=== PATIENT | female | born 1980 | race Hispanic/Latino ===

== ENCOUNTER 2017-07-12 09:27 | Emergency (ER) | payer OTHER ==
[2017-07-12 09:38] VITALS: BMI 25.1
--- NOTE | 2017-07-12 10:12 | ED PDOC ---
Lower Extremity Pain/Injury Time Seen by Provider: 07/12/17 09:54 Chief Complaint (Nursing): Lower Extremity Problem/Injury Chief Complaint (Provider): Left foot injury History Per: Patient History/Exam Limitations: no limitations Onset/Duration Of Symptoms: Days (x 2) Current Symptoms Are (Timing): Still Present Additional Complaint(s): Damaris is a 37 y/o female with no past medical history who presents to the ED complaining of left foot and toe pain, s/p injury last night around 10pm. Patient was moving furniture down the stairs, and rolled ankle. States she broke the left 5th metatarsal during childhood, and pain feels similar. Denies taking any medications for relief of pain. Patient iced the foot last night, without improvement. LMP was end of May. PMD: Michelle Andrade Past Medical History Reviewed: Historical Data, Nursing Documentation, Vital Signs - Medical History PMH: No Chronic Diseases - Surgical History Surgical History: Tonsillectomy Other surgeries: Breast augmentation - Family History Family History: States: Unknown Family Hx - Social History Current smoker - smoking cessation education provided: No Alcohol: Social Drugs: Denies - Home Medications Home Medications: Ambulatory Orders Medication Instructions Recorded No Known Home Med 07/12/17 - Allergies Allergies/Adverse Reactions: Allergies Allergy/AdvReac Type Severity Reaction Status Date / Time No Known Allergies Allergy Verified 06/07/16 14:54 Review of Systems ROS Statement: Except As Marked, All Systems Reviewed And Found Negative Musculoskeletal: Positive for: Foot Pain (Left foot and 5th metatarsal pain) Physical Exam - Reviewed Nursing Documentation Reviewed: Yes Vital Signs Reviewed: Yes - Physical Exam Appears: Positive for: Well, Non-toxic, No Acute Distress Head Exam: Positive for: ATRAUMATIC, NORMAL INSPECTION, NORMOCEPHALIC Skin: Positive for: Normal Color, Warm, Dry Eye Exam: Positive for: EOMI, Normal appearance, PERRL Neck: Positive for: Normal, Painless ROM, Supple Pulses-Dorsalis Pedis (L): 2+ Pulses-Dorsalis Pedis (R): 2+ Extremity: Positive for: Tenderness (tenderness to base of 5th metatarsal, no tenderness to lateral malleolus), Other (Ecchymosis at lateral malleolus, sensation intact) Neurologic/Psych: Positive for: Alert, Oriented. Negative for: Motor/Sensory Deficits - Radiology X-Ray: Interpreted by Me, Viewed By Me X-Ray Interpretation: No Acute Disease Nexus Criteria: Negative (for fracture) Medical Decision Making Medical Decision Making: Time: 10:09 Initial Impression: Sprained ankle, rule out toe fracture Initial Plan: -- test --Ibuprofen 600 mg PO --Pending X-Rays Left Foot and Ankle Time: 10:40 --X Rays read by me, negative for fracture --Podiatry consult requested Time: 12:30 --Tylenol 975 mg PO Scribe Attestation: Documented by Yumiko Purcell, acting as a scribe for Yoly Wen MD Provider Scribe Attestation: All medical record entries made by the Scribe were at my direction and personally dictated by me. I have reviewed the chart and agree that the record accurately reflects my personal performance of the history, physical exam, medical decision making, and the department course for this patient. I have also personally directed, reviewed, and agree with the discharge instructions and disposition. 1.00p - seen by podiatry resident. posterior splint and crutches. follow up with Dr. Whitman Disposition - Clinical Impression Clinical Impression: Foot sprain - Patient ED Disposition Is Patient to be Admitted: No Doctor Will See Patient In The: Office Counseled Patient/Family Regarding: Diagnosis, Need For Followup - Disposition Referrals: Amelia Whitman DPM [Staff Provider] - Disposition: Routine/Home Disposition Time: 13:00 Condition: STABLE Instructions: Foot Sprain (ED) Forms: [facility] (Malagasy) - POA Present On Arrival: None
[2017-07-12 11:21] VITALS: BP 121/85; PULSE 97; RESP 16; TEMP 98; O2SAT 100
--- NOTE | 2017-07-12 12:02 | CP.PCM.CON ---
History of Present Illness - History of Present Illness History of Present Illness: 37 year old female with no PMH presents to the ED for left foot pain secondary to trauma. She was moving furniture downstairs yesterday at 10pm with flip flops when her foot twisted, breaking the flops. She states that her ankle did not roll or twist; the twisting occurred at the foot level. She rates her pain 7 /10 and describes the pain as being a throbbing pain at the left 5th metatarsal base. It didn't hurt last night but this morning she was in pain. She noticed bruising on her lateral foot. She has tried icing at home which does not help. Did not take pain medications at home. She received Motrin in the ED which does not help much. Patient recalls having a 5th metatarsal fracture 20+ years ago but can't recall if it's the same foot. She was placed in a cast and healed with no complications. States the pain felt similar. Denies n/v/sob/cp/chills or f. Allergies: NKDA Meds: none PMH: none FH: none SH: denies smoking or elicited drug use, drinks socially PSH: tonsillectomy, breast implants Past Patient History - Past Social History Alcohol: Social Drugs: Denies - PSYCHIATRIC Hx Substance Use: No - SURGICAL HISTORY Hx Tonsillectomy: Yes - ANESTHESIA Hx Anesthesia: Yes Hx Anesthesia Reactions: No Meds Allergies/Adverse Reactions: Allergies Allergy/AdvReac Type Severity Reaction Status Date / Time No Known Allergies Allergy Verified 06/07/16 14:54 Physical Exam - Constitutional Appears: Well, Non-toxic, No Acute Distress - Extremities Exam Additional comments: Vasc: DP and PT 2/4 bilaterally, 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 Neuro: gross and protective sensation intact bilaterally Derm: Ecchymosis is noted to the lateral aspect of 5th metatarsal base extending proximal inferior to the lateral malleolus. small ecchymosis noted to the anterior to the ankle joint. - Neurological Exam Neurological exam: Alert, Oriented x3 - Psychiatric Exam Psychiatric exam: Normal Affect, Normal Mood Results - Vital Signs Recent Vital Signs: Last Vital Signs Temp 98.0 F 07/12/17 11:20 Pulse 97 H 07/12/17 11:20 Resp 16 07/12/17 11:20 BP 121/85 07/12/17 11:20 Pulse Ox 100 07/12/17 11:20 Assessment & Plan - Assessment and Plan (Free Text) Assessment: 37 year old female with no PMH presents for symptoms most consistent with L sprain tarsometatarsal and strain peroneus brevis tendon secondary to contusion Plan: Patient was seen and examined in the ED Discussed plan in detail with attending Dr. Whitman Charts and vitals reviewed (afebrile) X-rays reviewed of ankle and foot-no fracture noted Posterior splint applied, NWB with crutches Educated on RICE protocol Advised Ibuprofen for pain and inflammation F/U with Dr. Whitman in 1 week in office Information included in discharge paper to call for an appointment Thank you for the podiatry consult.
--- NOTE | 2017-07-12 20:05 | RAD ---
HISTORY: twisted foot last night COMPARISON: No prior FINDINGS: BONES: Normal. No fracture. JOINTS: Normal. No osteoarthritis. SOFT TISSUE: Normal. OTHER FINDINGS: None . IMPRESSION: Normal Bone Xray.
--- NOTE | 2017-07-12 20:11 | RAD ---
PROCEDURE: Left Foot Radiographs. HISTORY: twisted foot last night COMPARISON: None. FINDINGS: BONES: Normal. No fracture. JOINTS: Normal. SOFT TISSUES: Normal. OTHER FINDINGS: None. IMPRESSION: Normal left foot radiographs.
== END 2017-07-12 13:52 | disposition home or self-care (01) ==
LOC: H.ER 09:27
DX: S93.602A Unspecified sprain of left foot, initial encounter (principal); W50.2XXA Accidental twist by another person, initial encounter